=== PATIENT | male | born 1995 | race Two or more races ===

== ENCOUNTER 2017-12-16 02:35 | Emergency (ER) | payer BC, OTHER ==
[~2017-12-16] VITALS: Ht 172.7 cm; Wt 76.0 kg
[2017-12-16 03:36] LABS: ANION GAP 9 mmol/L (5-15); CALCIUM 8.5 mg/dL (8.5-10.1); CHLORIDE 103 mmol/L (98-107); CREATININE 1.13 mg/dL (0.7-1.3)
[2017-12-16 08:15] VITALS: BP 115/53
== END 2017-12-16 08:35 | disposition home or self-care (01) ==
LOC: ED 08:25
DX: F10.121 Alcohol abuse with intoxication delirium (principal); Z88.0 Allergy status to penicillin
CPT/HCPCS: 36415; 80048; 80307; 99284